=== PATIENT | male | born 1995 | race Hispanic/Latino ===

== ENCOUNTER 2020-12-30 13:46 | Emergency (ER) | payer OTHER, SELFPAY | END 2020-12-30 14:04 | disposition home or self-care (01) | LOC: BURERS 13:46 | DX: M77.02 Medial epicondylitis, left elbow (principal); M77.01 Medial epicondylitis, right elbow; X50.3XXA Overexertion from repetitive movements, initial encounter | CPT/HCPCS: 99283 ==

== ENCOUNTER 2021-08-05 08:28 | Emergency (ER) | payer SELFPAY ==
[2021-08-05 09:05] LABS: Bilirubin Negative (Negative); Blood, Urine Trace (Negative); Clarity Clear (Clear); Glucose, Urine (Dipstick) Negative (Negative); Ketone, Urine Negative (Negative); Leukocyte Small (Negative); Nitrite Negative (Negative); Protein, Urine (Dipstick) Negative (Neg-Trace); Specific Gravity, Urine 1.015 (1.005-1.030); Urobilinogen 0.2 mg/dL (Less than 2)
[2021-08-05 09:11] LABS: Bacteria/HPF None Seen HPF (None Seen); RBC/HPF 0-3 HPF (0-3); Squamous Epithelial 0-3 HPF (0-3)
[2021-08-05] MEDS ORDERED: Gentamicin 80 MG/2 ML VIAL ONE ×2 (09:49)
[2021-08-05] MEDS ORDERED: Azithromycin 250 MG TAB ONE (09:55)
[2021-08-07 05:15] LABS: Chlam.trachomatis by PCR,Urine Not Detected (NotDetected)
== END 2021-08-05 10:05 | disposition home or self-care (01) ==
LOC: BURERS 08:28
DX: N34.1 Nonspecific urethritis (principal); F17.210 Nicotine dependence, cigarettes, uncomplicated
CPT/HCPCS: 81003; 81015; 87491; 87591; 96372; 99283; J1580

== ENCOUNTER 2021-10-03 13:37 | Emergency (ER) | payer OTHER ==
[2021-10-03] MEDS ORDERED: Ketorolac Tromethamine 30 MG/ML VIAL ONE (14:21)
[2021-10-03] MEDS ORDERED: Dicyclomine 20 MG TAB ONE (14:21)
[2021-10-03 14:31] LABS: #Basophils 0.1 thou/uL (0.0-0.2); #Lymphocytes 1.1 thou/uL (1.20-3.40); #Monocytes 0.5 thou/uL (0.11-0.59); #Neutrophils 10.7 thou/uL (1.40-6.50); %Basophils 0.5 % (0.0-1.0); %Eosinophils 0.1 % (0.0-10.0); %Lymphocytes 8.9 % (21.0-51.0); %Monocytes 4.3 % (0.0-10.0); %Neutrophils 86.3 % (42.0-75.0); Hemoglobin 15.6 g/dL (14.0-18.0); Mean Corpuscular HGB CONC 35.3 g/dL (32.0-36.0); Mean Corpuscular Hemoglobin 30.8 pg (27.0-31.0); Mean Corpuscular Volume 87.2 fL (78.0-98.0); Platelet Count 197 thou/uL (130-400); RBC Distribution Width 10.7 % (11.5-14.5); Red Blood Cell (RBC) Count 5.08 mill/uL (4.70-6.10); White Blood Cell (WBC) Count 12.5 thou/uL (4.8-10.8)
[2021-10-03 14:45] LABS: ALT (SGPT) 21 U/L (8-55); AST (SGOT) 24 U/L (5-34); Albumin 4.7 g/dL (3.5-5.0); Alkaline Phosphatase 46 U/L (40-110); Anion Gap 15 mmol/L (10-20); BUN (Urea Nitrogen) 12 mg/dL (8.9-20.6); Bilirubin, Total 0.7 mg/dL (0.2-1.2); Calc. Creatinine Clearance 0 mL/min (70-130); Calcium 9.7 mg/dL (7.8-10.44); Carbon Dioxide 25 mmol/L (22-29); Chloride 105 mmol/L (98-107); Globulin 2.9 g/dL (2.4-3.5); Glucose 98 mg/dL (70-105); Potassium 3.8 mmol/L (3.5-5.1); Protein, Total 7.6 g/dL (6.0-8.3); Sodium 141 mmol/L (136-145)
[2021-10-03 15:06] LABS: Bilirubin Negative (Negative); Blood, Urine Trace (Negative); Clarity Clear (Clear); Glucose, Urine (Dipstick) Negative (Negative); Ketone, Urine Negative (Negative); Leukocyte Negative (Negative); Nitrite Negative (Negative); Protein, Urine (Dipstick) Negative (Neg-Trace); Urobilinogen 0.2 mg/dL (Less than 2)
[2021-10-03 15:47] LABS: RBC/HPF 0-3 HPF (0-3); WBC/HPF 0-3 HPF (0-3)
[2021-10-03 15:48] LABS: Bacteria/HPF Rare-Few HPF (None Seen); Squamous Epithelial 0-3 HPF (0-3)
== END 2021-10-03 15:53 | disposition home or self-care (01) ==
LOC: BURERS 13:37
DX: R10.32 Left lower quadrant pain (principal); N20.0 Calculus of kidney; F17.210 Nicotine dependence, cigarettes, uncomplicated
CPT/HCPCS: 36415; 74019; 80053; 81003; 81015; 85025; 96372; J1885

== ENCOUNTER 2022-06-21 12:51 | Emergency (ER) | payer OTHER | END 2022-06-21 13:18 | disposition home or self-care (01) | LOC: BURERS 12:51 | DX: M54.50 Low back pain, unspecified (principal); F17.200 Nicotine dependence, unspecified, uncomplicated | CPT/HCPCS: 99283 ==